=== PATIENT | female | born 1995 | race Caucasian/White ===

== ENCOUNTER 2021-09-03 11:19 | Outpatient (CLI) | payer MEDICARE, SELFPAY | END 2021-09-03 23:59 | disposition short-term general hospital (02) | LOC: LABSPEC 11:20 | PROVIDERS: Referring Provider Physician Assistant; Visit Provider Physician Assistant | DX: R05.9 Cough, unspecified (principal) | CPT/HCPCS: 87635; U0003; U0005 ==

== ENCOUNTER 2021-11-09 14:11 | Outpatient (CLI) | payer SELFPAY ==
[2021-11-09 15:26] LABS: Thyroid Stim Hormone (TSH) 2.18 uIU/mL (0.358-3.74)
[2021-11-15 16:32] LABS: HPV Reflexed? NOT INDICATED
== END 2021-11-09 23:59 | disposition home or self-care (01) ==
LOC: WOBLAB 14:11
PROVIDERS: Visit Provider Student in an Organized Health Care Education/Training Program
DX: N93.9 Abnormal uterine and vaginal bleeding, unspecified (principal); Z12.4 Encounter for screening for malignant neoplasm of cervix
CPT/HCPCS: 36415; 84443; 86900; 86901; 88175; G0145